=== PATIENT | male | born 2000 | race African-American/Black ===

== ENCOUNTER 2019-03-15 22:23 | Emergency (ER) | payer MEDICAID ==
[~2019-03-15] VITALS: Ht 175.3 cm; Wt 56.7 kg
[2019-03-15 22:28] VITALS: Ht 175.3 cm; Wt 56.7 kg
[2019-03-16 00:40] VITALS: BP 122/70
== END 2019-03-16 00:40 | disposition home or self-care (01) ==
LOC: ED 22:23
DX: J45.901 Unspecified asthma with (acute) exacerbation (principal); F17.210 Nicotine dependence, cigarettes, uncomplicated; Z71.6 Tobacco abuse counseling
CPT/HCPCS: 99406; J7613; J7644